=== PATIENT | female | born 1980 | race African-American/Black ===

== ENCOUNTER 2016-11-13 09:19 | Emergency (ER) | payer OTHER ==
[~2016-11-13 09:19] MED LIST: COMBIVENT INH14.7 GM INH; FLEXERIL PO; PHENERGAN W/CO120 ML PO; ZITHROMAX PO; [UNRECOGNIZED DRUG - OTHER]
== END 2016-11-13 10:05 | disposition home or self-care (01) ==
LOC: CED 09:19
DX: J06.9 Acute upper respiratory infection, unspecified (principal); G56.02 Carpal tunnel syndrome, left upper limb; R07.9 Chest pain, unspecified; J45.909 Unspecified asthma, uncomplicated; F17.210 Nicotine dependence, cigarettes, uncomplicated
CPT/HCPCS: 99283